=== PATIENT | female | born 1935 | race Caucasian/White ===

== ENCOUNTER 2019-10-05 14:24 | Outpatient (CLI) | payer MEDICARE, OTHER, SELFPAY ==
[2019-10-05 14:48] LABS: Basophils Percent Auto 0.9 % (0.2-1.2); Eosinophils Absolute Auto 0.1 K/mm3 (0-0.3); Eosinophils Percent Auto 2.1 % (0-4.4); Hematocrit 29.6 % (37.0-47.0); Hemoglobin 9.9 g/dL (12.0-15.0); Lymphocytes Absolute Auto 0.91 K/mm3 (0.9-3.2); Lymphocytes Percent Auto 27.7 % (18.3-44.2); Mean Corpuscular HGB Conc 33.4 g/dl (32-36); Mean Corpuscular Hemoglobin 33.9 pg (26-34); Mean Corpuscular Volume 101.4 fl (80-100); Mean Platelet Volume 8.6 fl (7.4-10.4); Monocytes Absolute Auto 0.6 K/mm3 (0.1-0.6); Monocytes Percent Auto 16.8 % (2.6-8.5); Neutrophils Absolute Auto 1.7 K/mm3 (1.3-6.7); Neutrophils Percent Auto 52.5 % (45.5-73.1); Platelet Count Result 204 k/mm3 (150-375); Red Blood Count 2.92 M/mm3 (4.2-5.4); Red Cell Distribution Width 12.6 % (11.5-14.5); White Blood Count 3.3 K/mm3 (4.5-10.0)
[2019-10-05 16:33] LABS: Iron 87 ug/dL (37-170)
[2019-10-05 16:35] LABS: Blood Urea Nitrogen 15 mg/dL (7-17); Calcium 9.6 mg/dL (8.4-10.2); Carbon Dioxide 25 mmol/L (22-30); Chloride 92 mmol/L (98-107); Estimated Glomerular Filt Rate > 60; Glucose 88 mg/dL (65-105); Potassium 4.6 mmol/L (3.4-5.0); Sodium 132 mmol/L (137-145)
[2019-10-05 16:42] LABS: Percent Iron Saturation 31 % (20-50)
== END 2019-10-05 14:25 | disposition home or self-care (01) ==
LOC: ANHLAB 14:30
PROVIDERS: PCP Internal Medicine; Visit Provider Internal Medicine Hematology & Oncology
DX: D72.819 Decreased white blood cell count, unspecified (principal); D50.9 Iron deficiency anemia, unspecified
CPT/HCPCS: 36415; 80048; 82607; 82728; 82746; 83540; 83550; 85025

== ENCOUNTER 2020-02-05 14:34 | Outpatient (CLI) | payer MEDICARE, OTHER, SELFPAY ==
[2020-02-05 15:02] LABS: Hematocrit 29.5 % (37.0-47.0); Hemoglobin 9.7 g/dL (12.0-15.0); Lymphocytes Percent Auto 19.7 % (18.3-44.2); Mean Corpuscular HGB Conc 32.9 g/dl (32-36); Mean Corpuscular Hemoglobin 34.2 pg (26-34); Mean Corpuscular Volume 103.9 fl (80-100); Mean Platelet Volume 8.6 fl (7.4-10.4); Monocytes Absolute Auto 0.5 K/mm3 (0.1-0.6); Monocytes Percent Auto 17.1 % (2.6-8.5); Neutrophils Absolute Auto 1.9 K/mm3 (1.3-6.7); Neutrophils Percent Auto 61.2 % (45.5-73.1); Platelet Count Result 207 k/mm3 (150-375); Red Blood Count 2.84 M/mm3 (4.2-5.4); Red Cell Distribution Width 12.7 % (11.5-14.5)
[2020-02-05 17:02] LABS: Alanine Aminotransferase 12 U/L (4-35); Albumin Level 4.5 g/dL (3.5-5.1); Alkaline Phosphatase 106 U/L (38-126); Aspartate Amino Transferase 29 U/L (14-36); Bilirubin,Total 0.4 mg/dL (0.2-1.3); Blood Urea Nitrogen 12 mg/dL (7-17); CRP < 0.5 mg/dL (<1.0); Calcium 9.3 mg/dL (8.4-10.2); Carbon Dioxide 29 mmol/L (22-30); Chloride 95 mmol/L (98-107); Estimated Glomerular Filt Rate > 60; Glucose 88 mg/dL (65-105); Potassium 4.1 mmol/L (3.4-5.0); Sodium 132 mmol/L (137-145)
[2020-02-06 11:56] LABS: Add Urine Microscopic? YES; Appearance Urine Cloudy (Clear); Bacteria Urine Trace /hpf; Bilirubin Urine Negative (Negative); Color Urine Yellow (Yellow); Glucose Urine UA Negative (Negative); Ketones Urine Negative (Negative); Leukocyte Esterase Ur 2+ LEU/UL (Negative); Mucus Urine Rare /lpf; Nitrate Urine Positive (Negative); Protein Urine Negative (Negative); Specific Grav Ur 1.012 (1.001-1.035); Squamous Epithelial Cell Urine Rare /hpf (Few); Urobilinogen Urine Negative mg/dL (<2.0); WBC Urine >75 /hpf
[2020-02-06 11:57] LABS: Blood Urine Negative (Negative)
== END 2020-02-05 14:35 | disposition home or self-care (01) ==
LOC: ANHLAB 14:35
PROVIDERS: PCP Internal Medicine; Visit Provider Internal Medicine Hematology & Oncology
DX: D72.819 Decreased white blood cell count, unspecified (principal); D64.9 Anemia, unspecified; D50.9 Iron deficiency anemia, unspecified; R76.8 Other specified abnormal immunological findings in serum; M19.90 Unspecified osteoarthritis, unspecified site; K51.90 Ulcerative colitis, unspecified, without complications; R35.0 Frequency of micturition; R39.9 Unspecified symptoms and signs involving the genitourinary system; N39.0 Urinary tract infection, site not specified; Z79.899 Other long term (current) drug therapy
CPT/HCPCS: 36415; 80053; 81001; 85025; 86140; 87077; 87086; 87088; 87186

== ENCOUNTER 2020-07-03 09:57 | Outpatient (CLI) | payer MEDICARE, OTHER, SELFPAY ==
--- NOTE | ~2020-07-03 | US_ITS ---
EXAMINATION: US carotid duplex BI DATE: 07/03/2020 10:53 INDICATION: Bilateral carotid stenosis. TECHNIQUE: Grayscale, color Doppler, and pulsed Doppler images of the cervical carotid arteries were obtained. The degree of vessel stenosis is placed in one of the following categories: normal, <50%, 5 0-69%, >=70% but less than near-occlusion, near-occlusion, or total occlusion. Note that percent sten osis relative to normal distal artery lumen diameter is indirectly measured from velocity measurement s as described by Alexey, et al. Radiology 2003; 229:340-346. COMPARISON: None. FINDINGS: RIGHT: The right common carotid artery (CCA) peak systolic velocity (PSV) is 85 cm/s. The right internal car otid artery (ICA) PSV is 70 cm/s. The right ICA end-diastolic velocity (EDV) is 27 cm/s. The right IC A/CCA PSV ratio is 0.8. Grayscale and color Doppler images yield an estimate of <50% diameter reducti on from plaque in the ICA. There is antegrade flow in the right vertebral artery. LEFT: The left CCA PSV is 71 cm/s. The left ICA PSV is 155 cm/s. The left ICA EDV is 37 cm/s. The left ICA/ CCA PSV ratio is 2.2. Grayscale and color Doppler images yield an estimate of >=50% diameter reductio n from plaque in the ICA. There is antegrade flow in the left vertebral artery. IMPRESSION: 1. <50% stenosis in the right internal carotid artery. 2. 50-69% stenosis in the left internal carotid artery. Reviewed, dictated and finalized at location A. STANT ANALYST
== END 2020-07-03 09:58 | disposition home or self-care (01) ==
PROVIDERS: PCP Internal Medicine; Visit Provider Internal Medicine Cardiovascular Disease
DX: I77.9 Disorder of arteries and arterioles, unspecified (principal); I25.10 Atherosclerotic heart disease of native coronary artery without angina pectoris; I65.23 Occlusion and stenosis of bilateral carotid arteries
CPT/HCPCS: 93880

== ENCOUNTER 2020-08-21 09:35 | Outpatient (CLI) | payer MEDICARE, OTHER, SELFPAY ==
[2020-08-21 09:59] LABS: Basophils Percent Auto 1.5 % (0.2-1.2); Eosinophils Absolute Auto 0.1 K/mm3 (0-0.3); Eosinophils Percent Auto 3.4 % (0-4.4); Hematocrit 29.9 % (37.0-47.0); Hemoglobin 9.8 g/dL (12.0-15.0); Immature Granulocyte Absolute 0.01 K/mm3 (0.00-0.031); Immature Granulocyte Percent A 0.4 % (0-0.5); Lymphocytes Absolute Auto 0.54 K/mm3 (0.9-3.2); Lymphocytes Percent Auto 20.2 % (18.3-44.2); Mean Corpuscular HGB Conc 32.8 g/dl (32-36); Mean Corpuscular Volume 109.9 fl (80-100); Mean Platelet Volume 8.5 fl (7.4-10.4); Monocytes Absolute Auto 0.5 K/mm3 (0.1-0.6); Monocytes Percent Auto 16.9 % (2.6-8.5); Neutrophils Absolute Auto 1.5 K/mm3 (1.3-6.7); Neutrophils Percent Auto 57.6 % (45.5-73.1); Platelet Count Result 234 k/mm3 (150-375); Red Blood Count 2.72 M/mm3 (4.2-5.4); Red Cell Distribution Width 13.2 % (11.5-14.5); White Blood Count 2.7 K/mm3 (4.5-10.0)
[2020-08-21 12:17] LABS: Alanine Aminotransferase 16 U/L (4-35); Albumin Level 4.5 g/dL (3.5-5.1); Alkaline Phosphatase 126 U/L (38-126); Anion Gap 8 mmol/L (8-16); Aspartate Amino Transferase 37 U/L (14-36); Bilirubin,Total 0.7 mg/dL (0.2-1.3); Blood Urea Nitrogen 16 mg/dL (7-17); Calcium 9.7 mg/dL (8.4-10.2); Carbon Dioxide 28 mmol/L (22-30); Chloride 96 mmol/L (98-107); Cholesterol 189 mg/dL (0-200); Estimated Glomerular Filt Rate > 60; Glucose 101 mg/dL (65-105); HDL Direct 65 mg/dL; Potassium 4.1 mmol/L (3.4-5.0); Sodium 132 mmol/L (137-145); Triglycerides 110 mg/dL (<150)
[2020-08-21 12:28] LABS: LDL Cholesterol Direct 87 mg/dL
[2020-08-21 12:31] LABS: Free T4 Free Thyroxine 1.13 ng/mL (0.78-2.19); Vitamin D 25 Hydroxy 77.8 ng/mL
[2020-08-27 13:43] LABS: Triiodothyronine T3 Free 2.5 pg/mL (2.3-4.2)
== END 2020-08-21 09:36 | disposition home or self-care (01) ==
LOC: ANHLAB 09:38
PROVIDERS: PCP Internal Medicine; Referring Provider Internal Medicine Hematology & Oncology; Visit Provider Internal Medicine
DX: I10 Essential (primary) hypertension (principal); E78.5 Hyperlipidemia, unspecified; M81.0 Age-related osteoporosis without current pathological fracture
CPT/HCPCS: 36415; 80053; 80061; 82306; 84439; 84443; 84481; 85025

== ENCOUNTER 2020-12-25 13:58 | Outpatient (CLI) | payer MEDICARE, OTHER, SELFPAY ==
[2020-12-25 14:36] LABS: Basophils Percent Auto 1.1 % (0.2-1.2); Eosinophils Absolute Auto 0.1 K/mm3 (0-0.3); Eosinophils Percent Auto 1.7 % (0-4.4); Hematocrit 29.4 % (37.0-47.0); Hemoglobin 9.8 g/dL (12.0-15.0); Immature Granulocyte Absolute 0.02 K/mm3 (0.00-0.031); Immature Granulocyte Percent A 0.6 % (0-0.5); Lymphocytes Absolute Auto 0.91 K/mm3 (0.9-3.2); Lymphocytes Percent Auto 25.5 % (18.3-44.2); Mean Corpuscular HGB Conc 33.3 g/dl (32-36); Mean Corpuscular Hemoglobin 35.3 pg (26-34); Mean Corpuscular Volume 105.8 fl (80-100); Mean Platelet Volume 8.6 fl (7.4-10.4); Monocytes Absolute Auto 0.5 K/mm3 (0.1-0.6); Monocytes Percent Auto 14.3 % (2.6-8.5); Neutrophils Percent Auto 56.8 % (45.5-73.1); Platelet Count Result 235 k/mm3 (150-375); Red Blood Count 2.78 M/mm3 (4.2-5.4); Red Cell Distribution Width 12.7 % (11.5-14.5); White Blood Count 3.6 K/mm3 (4.5-10.0)
[2020-12-25 15:12] LABS: Alanine Aminotransferase 14 U/L (4-35); Albumin Level 4.5 g/dL (3.5-5.1); Alkaline Phosphatase 118 U/L (38-126); Anion Gap 8 mmol/L (8-16); Aspartate Amino Transferase 30 U/L (14-36); Bilirubin,Total 0.5 mg/dL (0.2-1.3); Blood Urea Nitrogen 16 mg/dL (7-17); CRP 0.8 mg/dL (<1.0); Carbon Dioxide 27 mmol/L (22-30); Chloride 97 mmol/L (98-107); Estimated Glomerular Filt Rate > 60; Glucose 102 mg/dL (65-105); Potassium 4.1 mmol/L (3.4-5.0); Sodium 132 mmol/L (137-145)
[2020-12-25 15:47] LABS: Erythrocyte Sedimentation Rate 89 mm/hr (0-20)
== END 2020-12-25 13:59 | disposition home or self-care (01) ==
LOC: ANHLAB 14:01
PROVIDERS: PCP Internal Medicine; Visit Provider Internal Medicine
DX: R76.8 Other specified abnormal immunological findings in serum (principal); R79.89 Other specified abnormal findings of blood chemistry; D64.9 Anemia, unspecified; K51.90 Ulcerative colitis, unspecified, without complications; M06.9 Rheumatoid arthritis, unspecified; M19.90 Unspecified osteoarthritis, unspecified site; R53.1 Weakness
CPT/HCPCS: 36415; 80053; 85025; 85652; 86140

== ENCOUNTER 2021-08-05 10:00 | Outpatient (CLI) | payer MEDICARE, OTHER, SELFPAY ==
[2021-08-05 10:37] LABS: Hematocrit 34.5 % (37.0-47.0); Hemoglobin 11.1 g/dL (12.0-15.0); Mean Corpuscular HGB Conc 32.2 g/dl (32-36); Mean Corpuscular Hemoglobin 34.6 pg (26-34); Mean Corpuscular Volume 107.5 fl (80-100); Platelet Count Result 191 k/mm3 (150-375); Red Blood Count 3.21 M/mm3 (4.2-5.4); White Blood Count 2.3 K/mm3 (4.5-10.0)
[2021-08-05 11:17] LABS: Add Urine Microscopic? YES; Appearance Urine Cloudy (Clear); Bilirubin Urine Negative (Negative); Blood Urine Negative (Negative); Color Urine Yellow (Yellow); Glucose Urine UA Negative (Negative); Ketones Urine Negative (Negative); Leukocyte Esterase Ur 3+ LEU/UL (Negative); Mucus Urine Rare /lpf; Nitrate Urine Positive (Negative); Protein Urine Negative (Negative); Specific Grav Ur 1.012 (1.001-1.035); Squamous Epithelial Cell Urine Occasional /hpf (Few); Transitional Epi Cells Urine Rare /hpf (None Seen); Urobilinogen Urine Negative mg/dL (<2.0); WBC Clumps Urine Present /HPF; WBC Urine >75 /hpf
[2021-08-05 11:19] LABS: Alanine Aminotransferase 16 U/L (4-35); Albumin Level 4.5 g/dL (3.5-5.1); Alkaline Phosphatase 129 U/L (38-126); Anion Gap 8 mmol/L (8-16); Aspartate Amino Transferase 34 U/L (14-36); Bilirubin,Total 0.5 mg/dL (0.2-1.3); Blood Urea Nitrogen 10 mg/dL (7-17); CRP < 0.5 mg/dL (<1.0); Calcium 8.8 mg/dL (8.4-10.2); Carbon Dioxide 24 mmol/L (22-30); Chloride 97 mmol/L (98-107); Estimated Glomerular Filt Rate > 60; Glucose 147 mg/dL (65-110); Potassium 3.7 mmol/L (3.4-5.0); Sodium 129 mmol/L (137-145)
[2021-08-05 11:46] LABS: Erythrocyte Sedimentation Rate 41 mm/hr (0-20)
== END 2021-08-05 10:01 | disposition home or self-care (01) ==
PROVIDERS: PCP Internal Medicine; Visit Provider Internal Medicine
DX: K51.90 Ulcerative colitis, unspecified, without complications (principal); M06.9 Rheumatoid arthritis, unspecified; R76.8 Other specified abnormal immunological findings in serum; M19.90 Unspecified osteoarthritis, unspecified site
CPT/HCPCS: 36415; 80053; 81001; 85027; 85652; 86140; 87077; 87086; 87186

== ENCOUNTER 2021-12-03 14:27 | Outpatient (CLI) | payer MEDICARE, OTHER, SELFPAY ==
[2021-12-03 14:42] LABS: Basophils Absolute Auto 0.1 K/mm3 (0.0-0.1); Basophils Percent Auto 1.9 % (0.2-1.2); Eosinophils Absolute Auto 0.2 K/mm3 (0-0.3); Eosinophils Percent Auto 5.1 % (0-4.4); Hematocrit 37.7 % (37.0-47.0); Hemoglobin 11.6 g/dL (12.0-15.0); Immature Granulocyte Absolute 0.01 K/mm3 (0.00-0.031); Immature Granulocyte Percent A 0.2 % (0-0.5); Lymphocytes Absolute Auto 0.74 K/mm3 (0.9-3.2); Lymphocytes Percent Auto 17.8 % (18.3-44.2); Mean Corpuscular HGB Conc 30.8 g/dl (32-36); Mean Corpuscular Volume 107.1 fl (80-100); Mean Platelet Volume 9.1 fl (7.4-10.4); Monocytes Absolute Auto 0.6 K/mm3 (0.1-0.6); Monocytes Percent Auto 13.5 % (2.6-8.5); Neutrophils Absolute Auto 2.6 K/mm3 (1.3-6.7); Neutrophils Percent Auto 61.5 % (45.5-73.1); Platelet Count Result 171 k/mm3 (150-375); Red Blood Count 3.52 M/mm3 (4.2-5.4); Red Cell Distribution Width 12.8 % (11.5-14.5); White Blood Count 4.2 K/mm3 (4.5-10.0)
[2021-12-03 16:06] LABS: Alanine Aminotransferase 33 U/L (4-35); Albumin Level 4.7 g/dL (3.5-5.1); Alkaline Phosphatase 130 U/L (38-126); Anion Gap 8 mmol/L (8-16); Aspartate Amino Transferase 39 U/L (14-36); Bilirubin,Total 0.3 mg/dL (0.2-1.3); Blood Urea Nitrogen 16 mg/dL (7-17); CRP < 0.5 mg/dL (<1.0); Calcium 9.1 mg/dL (8.4-10.2); Carbon Dioxide 25 mmol/L (22-30); Chloride 106 mmol/L (98-107); Estimated Glomerular Filt Rate 59; Glucose 93 mg/dL (65-110); Potassium 4.3 mmol/L (3.4-5.0); Sodium 139 mmol/L (137-145)
[2021-12-03 16:16] LABS: Erythrocyte Sedimentation Rate 121 mm/hr (0-20)
== END 2021-12-03 14:28 | disposition home or self-care (01) ==
LOC: ANHLAB 14:30
PROVIDERS: PCP Family Medicine; Visit Provider Internal Medicine
DX: R76.8 Other specified abnormal immunological findings in serum (principal); M19.90 Unspecified osteoarthritis, unspecified site; K51.90 Ulcerative colitis, unspecified, without complications
CPT/HCPCS: 36415; 80053; 85025; 85652; 86140

== ENCOUNTER 2022-03-19 07:25 | Outpatient (CLI) | payer MEDICARE, OTHER, SELFPAY | END 2022-03-19 07:26 | disposition home or self-care (01) | PROVIDERS: PCP Family Medicine; Visit Provider Family Medicine | DX: E73.9 Lactose intolerance, unspecified (principal) | CPT/HCPCS: 36415; 82951; 82952 ==

== ENCOUNTER 2022-10-04 15:24 | Outpatient (CLI) | payer MEDICARE, OTHER, SELFPAY ==
[2022-10-04 15:47] LABS: Hematocrit 35.2 % (37.0-47.0); Hemoglobin 11.5 g/dL (12.0-15.0); Mean Corpuscular HGB Conc 32.7 g/dl (32-36); Mean Corpuscular Hemoglobin 32.5 pg (26-34); Mean Corpuscular Volume 99.4 fl (80-100); Mean Platelet Volume 9.2 fl (7.4-10.4); Platelet Count Result 198 k/mm3 (150-375); Red Blood Count 3.54 M/mm3 (4.2-5.4); Red Cell Distribution Width 13.1 % (11.5-14.5); White Blood Count 4.9 K/mm3 (4.5-10.0)
[2022-10-04 16:32] LABS: Alanine Aminotransferase 17 U/L (6-35); Albumin Level 4.3 g/dL (3.5-5.1); Alkaline Phosphatase 184 U/L (38-126); Anion Gap 7 mmol/L (8-16); Aspartate Amino Transferase 31 U/L (14-36); Bilirubin,Total 0.4 mg/dL (0.2-1.3); Blood Urea Nitrogen 16 mg/dL (7-17); CRP < 0.5 mg/dL (<1.0); Calcium 8.5 mg/dL (8.4-10.2); Carbon Dioxide 25 mmol/L (22-30); Chloride 102 mmol/L (98-107); Estimated Glomerular Filt Rate 52; Glucose 95 mg/dL (65-110); Potassium 3.9 mmol/L (3.4-5.0); Sodium 134 mmol/L (137-145)
[2022-10-04 17:26] LABS: Erythrocyte Sedimentation Rate 46 mm/hr (0-20)
[2022-10-04 17:33] LABS: Appearance Urine Slightly Cloudy (Clear); Bilirubin Urine Negative (Negative); Blood Urine Negative (Negative); Color Urine Yellow (Yellow); Glucose Urine UA Negative (Negative); Ketones Urine Negative (Negative); Leukocyte Esterase Ur Trace LEU/UL (Negative); Nitrate Urine Positive (Negative); Protein Urine Negative (Negative); Specific Grav Ur 1.015 (1.001-1.035); Urobilinogen Urine 0.2 mg/dL (<2.0); pH Urine 6.5 (5.0-9.0)
[2022-10-04 17:37] LABS: Bacteria Urine Trace /hpf; RBC Urine 0-2 /hpf (0-2); Squamous Epithelial Cell Urine Rare /hpf (Few)
[2022-10-04 17:38] LABS: Add Urine Microscopic? YES
== END 2022-10-04 15:25 | disposition home or self-care (01) ==
LOC: ANHLAB 15:26
PROVIDERS: PCP Family Medicine; Visit Provider Internal Medicine
DX: M19.90 Unspecified osteoarthritis, unspecified site (principal); M35.9 Systemic involvement of connective tissue, unspecified; R76.8 Other specified abnormal immunological findings in serum
CPT/HCPCS: 36415; 80053; 81001; 85027; 85652; 86140

== ENCOUNTER 2022-10-29 13:59 | Outpatient (CLI) | payer MEDICARE, OTHER, SELFPAY ==
--- NOTE | ~2022-10-29 | CT_ITS ---
EXAMINATION: CT abdomen pelvis w con DATE: 10/29/2022 14:26 INDICATION: Rectal prolapse TECHNIQUE: Computed tomography (CT) of the abdomen and pelvis was performed with 100 mL Omnipaque-350 intravenous contrast. Automated exposure control and iterative reconstruction technique were employe d. The dose-length product was 214.82 mGy-cm. COMPARISON: None FINDINGS: Calcified left lower lobe nodule consistent with old granulomatous disease. Heart size is normal. Pos toperative change of prior median sternotomy and coronary artery bypass grafting. Small sliding-type hiatal hernia. 6 mm low-attenuation hepatic cyst. Multiple gallstones within the normal partially dec ompressed gallbladder. Spleen, pancreas, bilateral adrenal glands and right kidney are normal. 5 mm l ow-attenuation left renal cyst. Pelvic floor relaxation with linear high attenuation likely suture li ne at the rectoanal junction which lies approximately 1.5 cm caudal to the pubococcygeal line. There is edematous wall thickening at the rectum and sigmoid colon consistent with a proctocolitis. No pneu matosis or portal venous gas. There are multiple diverticula along the sigmoid colon without adjacent inflammatory stranding to suggest diverticulitis. No bowel obstruction. Bladder is normal. Age-appro priate uterine atrophy with degenerated calcified fibroid at the anterior fundus. There is calcified atherosclerosis of the aorta and many of the other arteries. Moderate stenosis at the proximal superi or mesenteric artery. No abscess or free intraperitoneal gas or fluid. No pathologically enlarged abd ominal or pelvic lymphadenopathy. Tiny fat-containing umbilical hernia. IMPRESSION: 1. Edematous wall thickening sigmoid colon and rectum consistent with proctocolitis which could be in fectious, inflammatory or less likely ischemic in etiology. 2. Pelvic floor relaxation with suture line at the rectoanal junction lying approximately 1.5 cm belo w the pubococcygeal line. 3. Small sliding-type hiatal hernia. 4. 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 Reviewed, dictated and finalized at location B. IMPRESSION: 1. Edematous wall thickening sigmoid colon and rectum consistent with proctocol itis which could be infectious, inflammatory or less likely ischemic in etiolog y. 2. Pelvic floor relaxation with suture line at the rectoanal junction lying mariaelena roximately 1.5 cm below the pubococcygeal line. 3. Small sliding-type hiatal hernia. 4. 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
== END 2022-10-29 14:00 | disposition home or self-care (01) ==
PROVIDERS: PCP Family Medicine
DX: K62.3 Rectal prolapse (principal); R93.3 Abnormal findings on diagnostic imaging of other parts of digestive tract; N81.89 Other female genital prolapse; K44.9 Diaphragmatic hernia without obstruction or gangrene; K55.1 Chronic vascular disorders of intestine
CPT/HCPCS: 74177; Q9967

== ENCOUNTER → 2023-07-04 15:03 | Outpatient (CLI) | payer MEDICARE, OTHER, SELFPAY ==
--- NOTE | ~2023-07-04 | DEXA_ITS ---
Bone Density Report Name: TUCKER AGUDELO Age: 87 Sex: Female Ethnicity: White Date of : 1935 Indication: postmenopausal; screening for osteoporosis; height loss; Referring Provider: SHARAN, YUNG [facility] Study: Bone densitometry was performed. Exam Date: July 04, 2023 Accession number: [id number] Bone Density: Region BMD T-score Z-score Classification AP Spine (L1-L4) 0.731 -2.9 0.0 Osteoporosis Femoral Neck (Left) 0.570 -2.5 0.0 Osteoporosis Total Hip (Left) 0.624 -2.6 -0.3 Osteoporosis Femoral Neck (Right) 0.566 -2.5 0.0 Osteoporosis Total Hip (Right) 0.616 -2.7 -0.3 Osteoporosis Total Hip Mean 0.620 -2.7 -0.3 Osteoporosis World Health Organization criteria for BMD impression classify patients as: Normal (T-score at or above -1.0), Osteopenia (T-score between -1.0 and -2.5), or Osteoporosis (T-score at or below -2.5). 10-year Fracture Risk: FRAX not reported because: Some T-score for Spine Total or Hip Total or Femoral Neck at or below -2.5 Clinical Information Provided by Patient: Has used the following medications: Prolia (i.e. denosumab), Vitamin D Patient maximum height was 63 Menopause Age: 56 Does not regularly consume dairy products Drinks caffeinated beverages Onset of menses at age 13 Number of children 2 Impression: The patient has osteoporosis, based on the Total Spine T-score. Discussion: INCREASED RISK OF FRACTURE. BONE DENSITY IS UNDESIRABLY LOW AT ONE OR MORE SKELETAL SITES, CONSISTENT WITH POSTMENOPAUSAL OSTEOPOROSIS. This patient's lowest T-score meets the World Health Organization's (WHO) criteria for osteoporosis at one or more sites (T-score -2.5 or below). In untreated patients, the risk of osteoporotic fracture increases approximately two-fold for each 1.0 SD decrease in T-score. Low bone density is not the only risk factor for fracture; also consider factors such as patient's age, frailty or poor health, risk of falling, risk of injury, previous osteoporotic fracture, family history of osteoporosis, cigarette smoking, low body weight, etc. Not everyone with low bone mineral density has osteoporosis; osteomalacia and other metabolic bone disorders should also be considered. Patients who have osteoporosis should be evaluated for specific diseases and conditions (secondary causes) that may cause or contribute to bone loss. The [place] [employer] Endocrinologists (AACE) and National Osteoporosis Foundation (NOF) recommend pharmacologic intervention for all postmenopausal women whose T-score is in this range. The patient should follow a healthful lifestyle (good nutrition with adequate calcium and vitamin D, and appropriate weight-bearing exercise). Follow-Up: Consider a repeat BMD and Vertebral Fracture Assessment (VFA) exam in 2 years or sooner if medically
== END ==
PROVIDERS: PCP Nurse Practitioner Family; Visit Provider Nurse Practitioner Family
DX: Z78.0 Asymptomatic menopausal state (principal); M81.0 Age-related osteoporosis without current pathological fracture
CPT/HCPCS: 77080

== ENCOUNTER 2024-05-04 19:42 | Emergency (ER) | payer MEDICARE, OTHER, SELFPAY ==
--- NOTE | ~2024-05-04 | XR_ITS ---
XR chest 1V portable Ordering provider: Den Calles MD History: 88 years Female with . Syncope . Comparison: October 31, 2008 FINDINGS: MEDIASTINUM: The cardiac silhouette is not enlarged. Congestive elvis. Postoperative changes in the me diastinum. LUNGS: No infiltrates, effusions or pneumothorax. Bilateral interstitial changes. OTHER: No free air under the diaphragm. Degenerative changes of the spine. IMPRESSION: No acute cardiopulmonary pathology. Reviewed, dictated and finalized at location A.
[2024-05-04 19:40] VITALS: BP 120/64; PULSE 64; RESP 18; TEMP 36.6; O2SAT 98
[2024-05-04 19:49] VITALS: PULSE 63
--- NOTE | 2024-05-04 19:49 | ECG_ITS ---
Test Date: 2024-05-04 19:52:28 Measurements Intervals [place] Rate: 58 P: 0 SD: 0 QRS: 15 QRSD: 78 T: 180 QT: 427 QTc: 423 Interpretive Statements SINUS BRADYCARDIA ATRIAL AND VENTRICULAR PREMATURE COMPLEXES BORDERLINE AV CONDUCTION DELAY ST-T WAVE ABNORMALITY IN ANTEROLAT/HIGH LAT LEADS- CONSIDER ISCHEMIA BASELINE ARTIFACT- I, II, III, AVR, AVL, AVF, V2, V4 BORDERLINE ECG No previous ECG available for comparison Electronically Signed On 05-05-2024 07:46:50 CDT by Adam Reynoso D.O.
[2024-05-04 20:05] LABS: Basophils Absolute Auto 0.1 K/mm3 (0.0-0.1); Basophils Percent Auto 1.5 % (0.2-1.2); Eosinophils Absolute Auto 0.2 K/mm3 (0-0.3); Eosinophils Percent Auto 4.2 % (0-4.4); Hemoglobin 11.2 g/dL (12.0-15.0); Immature Granulocyte Absolute 0.01 K/mm3 (0.00-0.031); Immature Granulocyte Percent A 0.2 % (0-0.5); Lymphocytes Absolute Auto 1.06 K/mm3 (0.9-3.2); Lymphocytes Percent Auto 22.2 % (18.3-44.2); Mean Corpuscular HGB Conc 32.9 g/dl (32-36); Mean Corpuscular Hemoglobin 32.7 pg (26-34); Mean Corpuscular Volume 99.4 fl (80-100); Mean Platelet Volume 9.8 fl (7.4-10.4); Monocytes Absolute Auto 0.6 K/mm3 (0.1-0.6); Monocytes Percent Auto 12.2 % (2.6-8.5); Neutrophils Absolute Auto 2.9 K/mm3 (1.3-6.7); Neutrophils Percent Auto 59.7 % (45.5-73.1); Platelet Count Result 181 k/mm3 (150-375); Red Blood Count 3.42 M/mm3 (4.2-5.4); Red Cell Distribution Width 13.7 % (11.5-14.5); White Blood Count 4.8 K/mm3 (4.5-10.0)
--- NOTE | 2024-05-04 20:53 | ED.GENADULT ---
HPI - General Adult General Chief complaint: Syncope Stated complaint: SYNCOPE, HYPOTENSION, BRADYCARDIA Time Seen by Provider: 05/04/24 20:06 History of Present Illness HPI narrative: Patient 88-year-old female who presents emergency department with chief complaint of syncope. Patient reports she has had some diarrhea for the last several days she has prior history of colitis patient was out with her family and eating dinner at [address] patient started to feel weak put her head down and then briefly passed out the patient's family reports that they were able to ambulate her with the systems out to the ambulance but was not feeling well when EMS arrived the patient was both bradycardic and hypotensive received IV fluids and subsequently has improved as her heart rate and blood pressure have come up. Related Data Home Medications Medication Instructions Recorded Confirmed amlodipine 2.5 mg tablet 2.5 mg PO DAILY 08/06/19 03/15/24 aspirin 81 mg tablet,delayed 81 mg PO DAILY 08/06/19 03/15/24 release (Adult Low Dose Aspirin) carvedilol 25 mg tablet 25 mg PO Q12H 08/06/19 03/15/24 donepezil 10 mg tablet 10 mg PO ONCE 08/06/19 03/15/24 ferrous sulfate 325 mg (65 mg 325 mg PO TID 08/06/19 03/15/24 iron) tablet (Feosol) losartan 50 mg tablet 50 mg PO DAILY 08/06/19 03/15/24 omega-3 fatty acids 1,000 mg 1,000 mg PO DAILY 08/06/19 03/15/24 capsule (Fish Oil Concentrate) sulfadiazine 500 mg tablet 1 gm PO TID 08/06/19 03/15/24 dicyclomine 10 mg capsule 10 mg PO TID 02/04/21 03/15/24 memantine 10 mg tablet 10 mg PO BID 02/04/21 03/15/24 denosumab 60 mg/mL subcutaneous 60 mg subcut [id number] 12/03/21 03/15/24 syringe (Prolia) dicyclomine 10 mg capsule 10 mg PO BID 12/03/21 03/15/24 donepezil 10 mg tablet 10 mg PO QHS 12/03/21 03/15/24 ferrous sulfate 325 mg (65 mg 325 mg PO DAILY 12/03/21 03/15/24 iron) tablet (FeroSul) loratadine 10 mg tablet 10 mg PO DAILY 12/03/21 03/15/24 mesalamine 800 mg tablet,delayed 1,600 mg PO TID 12/03/21 03/15/24 release omega-3 acid ethyl esters 1 gram 1 cap PO DAILY 12/03/21 03/15/24 capsule phenylephrine 0.25 %-mineral oil 1 applic RECTAL QAM AND QHS 12/03/21 03/15/24 14 %-petrolatm 74.9 % rectal ointment (Preparation H) rosuvastatin 20 mg tablet 20 mg PO DAILY 12/03/21 03/15/24 vit C 250 mg-vit E 90 mg-zinc 40 1 tablet PO BID 12/03/21 03/15/24 mg-copper 1 [id number] capsule (PreserVision AREDS-2) denosumab 60 mg/mL subcutaneous 60 mg subcut [id number] 10/04/22 03/15/24 syringe (Prolia) promethazine 25 mg tablet 25 mg PO TID PRN nauseaa 10/04/22 03/15/24 Allergies Allergy/AdvReac Type Severity Reaction Status Date / Time No Known Allergies Allergy Verified 03/15/24 13:25 Review of Systems Review of Systems: A 10 system review of systems was completed on the patient and is negative except for what is stated in the HPI. Nursing and ancillary documentation was reviewed. [facility] Past Medical History Medical History GURWINDER positive (~2019) Anemia HTN (hypertension) Ulcerative colitis Weakness Family History Family History Mother Acute myocardial infarction Father Patient's father is , Onset Age: 84 Social History Social History Smoking status: Never smoker Alcohol intake: current Exam Narrative: GENERAL: Well-appearing, well-nourished, and in no acute distress. HEAD: Normocephalic, atraumatic. EYES: PERRLA and EOMI. ENT: Nares clear, no rhinorrhea or epistaxis. Mucous membranes moist. NECK: Supple. CHEST: Clear to auscultation. No respiratory distress. HEART: Regular rate and rhythm. No murmur heard. Normal peripheral pulses. ABDOMEN: Soft, nontender, nondistended, normal active bowel sounds. EXTREMITIES: Normal range of motion. No ed
[2024-05-04 21:23] LABS: Alanine Aminotransferase 12 U/L (6-35); Albumin Level 3.9 g/dL (3.5-5.1); Alkaline Phosphatase 137 U/L (38-126); Anion Gap 14 mmol/L (4-12); Aspartate Amino Transferase 24 U/L (14-36); Bilirubin,Total 0.3 mg/dL (0.2-1.3); Blood Urea Nitrogen 13 mg/dL (7-17); Calcium 8.4 mg/dL (8.4-10.2); Carbon Dioxide 14 mmol/L (22-30); Chloride 104 mmol/L (98-107); Estimated CRCL calculation 28 ml/min; Estimated Glomerular Filt Rate 52; Glucose 121 mg/dL (65-110); Magnesium 1.9 mg/dL (1.6-2.3); Potassium 3.8 mmol/L (3.4-5.0); Sodium 132 mmol/L (137-145)
[2024-05-04 21:36] LABS: Procalcitonin 0.1 ng/mL
[2024-05-04 21:36] LABS: Troponin I < 0.012 ng/mL (0.000-0.034)
[2024-05-04 21:45] LABS: Influenza A QL RT-PCR Negative (Negative); Influenza B QL RT-PCR Negative (Negative); RSV RNA, RT-PCR Negative (Negative); SARS-CoV-2 RNA PCR Negative (Negative)
[2024-05-04 22:00] LABS: Add Urine Microscopic? YES; Appearance Urine Clear (Clear); Bacteria Urine 4+ /hpf; Bilirubin Urine Negative (Negative); Blood Urine Negative (Negative); Color Urine Yellow (Yellow); Glucose Urine UA Negative (Negative); Ketones Urine Negative (Negative); Leukocyte Esterase Ur 2+ LEU/UL (Negative); Nitrate Urine Positive (Negative); Protein Urine Negative (Negative); RBC Urine 0-2 /hpf (0-2); Specific Grav Ur 1.008 (1.001-1.035); Squamous Epithelial Cell Urine Occasional /hpf (Few); Urobilinogen Urine 0.2 mg/dL (<2.0); WBC Urine 21-50 /hpf (0-3); pH Urine 5.5 (5.0-9.0)
[2024-05-05 00:05] LABS: Troponin I < 0.012 ng/mL (0.000-0.034)
[2024-05-05 00:31] VITALS: BP 132/81; PULSE 70; RESP 18; O2SAT 96
== END 2024-05-05 01:29 ==
PROVIDERS: Emergency Provider Emergency Medicine
DX: R55 Syncope and collapse (principal); N39.0 Urinary tract infection, site not specified; Z79.82 Long term (current) use of aspirin; I10 Essential (primary) hypertension; Z20.822 Contact with and (suspected) exposure to COVID-19
CPT/HCPCS: 36415; 71045; 80053; 81001; 83605; 83735; 84145; 84484; 85025; 87077; 87086; 87088; 87186; 87637; 93005; 96365; 99284; J0696

== ENCOUNTER 2024-10-31 11:59 | Outpatient (CLI) | payer MEDICARE, OTHER, SELFPAY ==
--- NOTE | ~2024-10-31 | MR_ITS ---
MRI of the abdomen Clinical history abnormal weight loss TECHNIQUE: Axial T2-weighted and T2 fat-sat images, and T1-weighted in phase and out of phase images were performed. Coronal T2-weighted and T2 fat-sat images were performed. FINDINGS: Liver, spleen, pancreas, adrenal glands, and kidneys are essentially unremarkable. [place] es are present. No gallbladder wall thickening or pericholecystic inflammatory change. No lymphadenopathy or aortic aneurysm seen. No ascites. Visualized bowel loops are unremarkable. IMPRESSION: Cholelithiasis. Reviewed, dictated and finalized at location M. IMPRESSION: Cholelithiasis.
--- NOTE | ~2024-10-31 | MR_ITS ---
MRI of the pelvis Clinical history abnormal weight loss TECHNIQUE: Axial T1-weighted in phase and out of phase images, and axial T2-weighted and T2 fat-sat i mages were performed. Coronal T2-weighted and T2 fat-sat images were performed. FINDINGS: Urinary bladder unremarkable. No significant adnexal/pelvic mass identified. No ascites. Visualized bowel loops are unremarkable. No lymphadenopathy evident. Visualized osseous structures are intact. IMPRESSION: No significant abnormality seen in the pelvis. Reviewed, dictated and finalized at location .
== END 2024-10-31 12:00 | disposition home or self-care (01) ==
LOC: GOSHIMG 11:59
DX: R63.4 Abnormal weight loss (principal)
CPT/HCPCS: 72195; 74181